=== PATIENT | female | born 1940 ===

== ENCOUNTER 2022-05-07 11:07 | Inpatient (IN) | payer MEDICARE, OTHER ==
[2022-05-07] VITALS (429 sets, daily range): BP systolic 126–156; BP diastolic 66–84; PULSE 44–65; TEMP 97.9–98; O2SAT 73–100
[~2022-05-07] VITALS: Ht 152.4 cm; Wt 73.3 kg
[2022-05-07 16:36] LABS: MEAN CELL VOLUME 95 fl (80.0-100.0); MEAN CORPUSCULAR HGB CONC 35 g/dl (33.0-37.0); MEAN PLATELET VOLUME 9.9 fl (7.4-10.4); PLATELET COUNT 159 K/mm3 (130-400); RED BLOOD COUNT 2.84 M/mm3 (4.10-5.30); REDCELL DISTRIBUTION WIDTH-CV 14.8 % (11.5-14.5)
[2022-05-07 16:37] LABS: HEMATOCRIT 26.9 % (37.0-47.0); HEMOGLOBIN 9.3 g/dl (12.5-16.0); MEAN CORPUSCULAR HEMOGLOBIN 33 pg (27-31)
[2022-05-07 16:56] LABS: ALBUMIN 2.8 gm/dL (3.4-4.8); BILIRUBIN,TOTAL 0.7 mg/dL (0.2-1.2); CREATININE, serum 1.72 mg/dL (0.57-1.11); POTASSIUM 3.3 mmol/L (3.5-4.5); TOTAL PROTEIN 11.6 gm/dL (6.2-8.1)
[2022-05-07 16:57] LABS: CALCIUM 13.5 mg/dL (8.4-10.2)
[2022-05-07 17:15] LABS: MAGNESIUM 1.7 mg/dL (1.6-2.6)
[2022-05-07 17:42] LABS: INR 1.2 (0.8-3.0); PROTHROMBIN TIME 13.3 SECONDS (9.7-12.8)
[2022-05-07 17:44] LABS: PARTIAL THROMBOPLASTIN TIME 28.4 SECONDS (26.0-37.0)
[2022-05-07 17:49] LABS: IRON,SERUM 109 ug/dL (50-175); LACTATE DEHYDROGENASE 205 U/L (125-220)
[2022-05-07] MEDS ORDERED: SYNTHROID0.05 MG/TA PO (19:47)
[2022-05-07] MEDS ORDERED: PLAQUENIL 200M200 MG PO (19:49)
[2022-05-07] MEDS ORDERED: HYDRODIURIL50 MG PO (19:49)
[2022-05-07] MEDS ORDERED: ZOVIRAX 200MG200 MG PO (19:52)
[2022-05-07] MEDS ORDERED: VITAMIN D31000 I1 PO (19:54)
[2022-05-07] MEDS ORDERED: CALCIUM 600 MG1 EAC2 PO (19:55)
[2022-05-07] MEDS ORDERED: OMEGA-31 SGL (19:56)
[2022-05-07] MEDS ORDERED: COMPLETE MULTI1 TAB (19:57)
[2022-05-07] MEDS ORDERED: VITAMIN C500 MG PO (19:58)
[2022-05-07] MEDS ORDERED: THIAMINE 1100 MG/TAB (19:58)
[2022-05-07] MEDS ORDERED: NATURAL IRON65 MG PO (20:01)
[2022-05-07] MEDS ORDERED: BETAPACE 120MG120 MG PO (20:02)
[2022-05-08] VITALS (574 sets, daily range): BP systolic 133–154; BP diastolic 52–75; PULSE 65–80; TEMP 97.7–98.4; O2SAT 90–100
[2022-05-08 05:56] LABS: ALBUMIN 2.4 gm/dL (3.4-4.8); BILIRUBIN,TOTAL 0.5 mg/dL (0.2-1.2); CREATININE, serum 1.24 mg/dL (0.57-1.11); POTASSIUM 3.1 mmol/L (3.5-4.5); TOTAL PROTEIN 10.3 gm/dL (6.2-8.1)
[2022-05-08 06:01] LABS: CALCIUM 13.3 mg/dL (8.4-10.2)
[2022-05-08 06:03] LABS: TROPONIN-I 0.031 ng/mL (0.00-0.033)
[2022-05-08 14:29] LABS: HEMATOCRIT 28.1 % (37.0-47.0); HEMOGLOBIN 9.1 g/dl (12.5-16.0)
[2022-05-08 17:56] LABS: HEPATITIS B SURFACE ANTIBODY <2.0 (()); HEPATITIS B SURFACE ANTIGEN Negative (Negative); HEPATITIS C VIRUS ANTIBODY Negative (Negative)
[2022-05-08 17:57] LABS: INR 1.2 (0.8-3.0); PROTHROMBIN TIME 14.1 SECONDS (9.7-12.8)
[2022-05-08 20:23] LABS: CLOSTRIDIUM DIFF A/B NEG; CLOSTRIDIUM DIFF A/B INTERP No C.diff present
[2022-05-09] VITALS (944 sets, daily range): BP systolic 123–160; BP diastolic 70–86; PULSE 75–96; TEMP 97.6–98.1; O2SAT 90–100
[2022-05-09 08:01] LABS: BASO % 0.2 % (0.0-2.0); GRAN # 5.5 K/mm3 (1.4-6.5); GRAN % 85.6 % (42.2-75.2); LYMPH # 0.5 K/mm3 (1.2-3.4); LYMPH % 7.8 % (20.0-51.0); MEAN CELL VOLUME 99 fl (80.0-100.0); MEAN CORPUSCULAR HGB CONC 34 g/dl (33.0-37.0); MEAN PLATELET VOLUME 10.1 fl (7.4-10.4); MONO # 0.4 K/mm3 (0.1-0.6); MONO % 5.8 % (1.7-9.3); PLATELET COUNT 136 K/mm3 (130-400); RED BLOOD COUNT 2.63 M/mm3 (4.10-5.30); REDCELL DISTRIBUTION WIDTH-CV 14.9 % (11.5-14.5)
[2022-05-09 08:03] LABS: HEMOGLOBIN 8.7 g/dl (12.5-16.0); MEAN CORPUSCULAR HEMOGLOBIN 33 pg (27-31)
[2022-05-09 08:17] LABS: ALBUMIN 2.1 gm/dL (3.4-4.8); CALCIUM 11.1 mg/dL (8.4-10.2); CREATININE, serum 1.16 mg/dL (0.57-1.11); MAGNESIUM 1.2 mg/dL (1.6-2.6); PHOSPHOROUS 1.3 mg/dL (2.3-4.7)
[2022-05-09 08:18] LABS: KAPPA FREE LIGHT CHAIN-SERUM 513.25 mg/L (()); KAPPA LAMBDA RATIO 86.26 ratio (()); LAMDA FREE LIGHT CHAIN SERUM 5.95 mg/L (())
[2022-05-10] VITALS (1107 sets, daily range): BP systolic 123–175; BP diastolic 61–98; PULSE 45–90; TEMP 97.9–98.8; O2SAT 86–100
[2022-05-10 05:17] LABS: BASO % 0.1 % (0.0-2.0); EOS % 0.1 % (0.0-4.0); GRAN # 6.6 K/mm3 (1.4-6.5); GRAN % 83.7 % (42.2-75.2); LYMPH # 0.7 K/mm3 (1.2-3.4); LYMPH % 8.8 % (20.0-51.0); MEAN CELL VOLUME 103 fl (80.0-100.0); MEAN CORPUSCULAR HGB CONC 32 g/dl (33.0-37.0); MEAN PLATELET VOLUME 9.9 fl (7.4-10.4); MONO # 0.5 K/mm3 (0.1-0.6); MONO % 6.7 % (1.7-9.3); PLATELET COUNT 143 K/mm3 (130-400); RED BLOOD COUNT 2.46 M/mm3 (4.10-5.30); REDCELL DISTRIBUTION WIDTH-CV 14.8 % (11.5-14.5)
[2022-05-10 05:19] LABS: HEMATOCRIT 25.4 % (37.0-47.0); MEAN CORPUSCULAR HEMOGLOBIN 33 pg (27-31)
[2022-05-10 05:35] LABS: ALBUMIN 1.9 gm/dL (3.4-4.8); CALCIUM 9.2 mg/dL (8.4-10.2); CREATININE, serum 0.85 mg/dL (0.57-1.11); MAGNESIUM 1.8 mg/dL (1.6-2.6); PHOSPHOROUS 1.7 mg/dL (2.3-4.7); POTASSIUM 3.7 mmol/L (3.5-4.5)
[2022-05-10 18:42] LABS: HEMATOCRIT 26.8 % (37.0-47.0); HEMOGLOBIN 8.8 g/dl (12.5-16.0)
[2022-05-11] VITALS (1318 sets, daily range): BP systolic 138–159; BP diastolic 57–73; PULSE 49–68; TEMP 97.9–98.8; O2SAT 89–100
[2022-05-11 05:30] LABS: BASO % 0.1 % (0.0-2.0); EOS % 0.1 % (0.0-4.0); GRAN # 6.5 K/mm3 (1.4-6.5); GRAN % 77.9 % (42.2-75.2); LYMPH % 11.7 % (20.0-51.0); MEAN CELL VOLUME 99 fl (80.0-100.0); MEAN CORPUSCULAR HGB CONC 33 g/dl (33.0-37.0); MEAN PLATELET VOLUME 9.7 fl (7.4-10.4); MONO # 0.8 K/mm3 (0.1-0.6); MONO % 9.1 % (1.7-9.3); PLATELET COUNT 152 K/mm3 (130-400); RED BLOOD COUNT 2.44 M/mm3 (4.10-5.30); REDCELL DISTRIBUTION WIDTH-CV 15.1 % (11.5-14.5)
[2022-05-11 05:35] LABS: HEMATOCRIT 24.1 % (37.0-47.0); MEAN CORPUSCULAR HEMOGLOBIN 33 pg (27-31)
[2022-05-11 05:45] LABS: CALCIUM 8.7 mg/dL (8.4-10.2); CREATININE, serum 0.84 mg/dL (0.57-1.11); MAGNESIUM 1.6 mg/dL (1.6-2.6); PHOSPHOROUS 1.5 mg/dL (2.3-4.7); POTASSIUM 4.2 mmol/L (3.5-4.5)
[2022-05-12] VITALS (584 sets, daily range): BP systolic 143–170; BP diastolic 55–74; PULSE 63–72; TEMP 96.6–98.5; O2SAT 90–100
[2022-05-12 05:39] LABS: BASO % 0.2 % (0.0-2.0); EOS # 0.1 K/mm3 (0.0-0.7); EOS % 0.6 % (0.0-4.0); GRAN # 7.4 K/mm3 (1.4-6.5); GRAN % 74.1 % (42.2-75.2); LYMPH # 1.4 K/mm3 (1.2-3.4); LYMPH % 13.9 % (20.0-51.0); MEAN CELL VOLUME 103 fl (80.0-100.0); MEAN CORPUSCULAR HGB CONC 32 g/dl (33.0-37.0); MEAN PLATELET VOLUME 9.8 fl (7.4-10.4); MONO % 9.8 % (1.7-9.3); PLATELET COUNT 192 K/mm3 (130-400); RED BLOOD COUNT 2.67 M/mm3 (4.10-5.30); REDCELL DISTRIBUTION WIDTH-CV 15.5 % (11.5-14.5)
[2022-05-12 05:44] LABS: HEMATOCRIT 27.6 % (37.0-47.0); HEMOGLOBIN 8.8 g/dl (12.5-16.0); MEAN CORPUSCULAR HEMOGLOBIN 33 pg (27-31)
[2022-05-12 05:57] LABS: ALBUMIN 2.2 gm/dL (3.4-4.8); CALCIUM 8.3 mg/dL (8.4-10.2); CREATININE, serum 0.81 mg/dL (0.57-1.11); MAGNESIUM 2.1 mg/dL (1.6-2.6); PHOSPHOROUS 1.7 mg/dL (2.3-4.7); POTASSIUM 3.6 mmol/L (3.5-4.5)
[2022-05-12 13:27] LABS: A/G RATIO (PEP) 0.49 (()); BETA GLOBULINS (PEP) 1.2 g/dL (0.7-1.2)
[2022-05-13] VITALS: BP 152/67; PULSE 72; TEMP 98.1
[2022-05-13 04:37] VITALS: BP 160/72; PULSE 80; TEMP 98
[2022-05-13 05:45] LABS: ALBUMIN 2.1 gm/dL (3.4-4.8); CALCIUM 7.8 mg/dL (8.4-10.2); CREATININE, serum 0.79 mg/dL (0.57-1.11); MAGNESIUM 1.8 mg/dL (1.6-2.6); PHOSPHOROUS 1.8 mg/dL (2.3-4.7); POTASSIUM 4.5 mmol/L (3.5-4.5)
[2022-05-13 06:15] LABS: BASO % 0.1 % (0.0-2.0); GRAN # 8.6 K/mm3 (1.4-6.5); GRAN % 84.5 % (42.2-75.2); LYMPH # 0.7 K/mm3 (1.2-3.4); LYMPH % 6.7 % (20.0-51.0); MEAN CELL VOLUME 104 fl (80.0-100.0); MEAN CORPUSCULAR HGB CONC 31 g/dl (33.0-37.0); MEAN PLATELET VOLUME 9.8 fl (7.4-10.4); MONO # 0.8 K/mm3 (0.1-0.6); MONO % 7.4 % (1.7-9.3); PLATELET COUNT 172 K/mm3 (130-400); RED BLOOD COUNT 2.43 M/mm3 (4.10-5.30); REDCELL DISTRIBUTION WIDTH-CV 15.5 % (11.5-14.5)
[2022-05-13 06:26] LABS: HEMOGLOBIN 7.9 g/dl (12.5-16.0); MEAN CORPUSCULAR HEMOGLOBIN 33 pg (27-31)
[2022-05-13 06:27] LABS: HEMATOCRIT 25.3 % (37.0-47.0)
[2022-05-13 08:00] VITALS: BP 152/67; PULSE 80; TEMP 98.4
[2022-05-13] MEDS ORDERED: ELIQUIS 5MG PO (11:28)
[2022-05-13] MEDS ORDERED: NORVASC 5MG5 MG/TAB PO (11:28)
[2022-05-13] MEDS ORDERED: CORDARONE200 MG/TAB PO (11:31)
[2022-05-13] MEDS ORDERED: DECADRON 4MG TAB4 MG PO (11:32)
== END 2022-05-13 14:23 | disposition swing bed (61) | DRG 260 ==
LOC: IMCU 11:07 → EDSTATUS 11:10 → ICU 13:13 → IMCU 13:13 → ICU 05-08 10:39
PROVIDERS: Internal Medicine Nephrology; Student in an Organized Health Care Education/Training Program; ADMIT Internal Medicine
PROC: 0JH602Z Insertion of Monitoring Device into Chest Subcutaneous Tissue and Fascia, Open Approach (ICD-10-PCS; principal; 2022-05-12)
DX: I48.0 Paroxysmal atrial fibrillation (principal); G93.41 Metabolic encephalopathy; J96.01 Acute respiratory failure with hypoxia; C90.00 Multiple myeloma not having achieved remission; E87.1 Hypo-osmolality and hyponatremia; N17.9 Acute kidney failure, unspecified; E88.09 Other disorders of plasma-protein metabolism, not elsewhere classified; D63.0 Anemia in neoplastic disease; E83.52 Hypercalcemia; K21.9 Gastro-esophageal reflux disease without esophagitis; T44.7X5A Adverse effect of beta-adrenoreceptor antagonists, initial encounter; E86.9 Volume depletion, unspecified; I95.9 Hypotension, unspecified; I08.1 Rheumatic disorders of both mitral and tricuspid valves; I49.1 Atrial premature depolarization; I12.9 Hypertensive chronic kidney disease with stage 1 through stage 4 chronic kidney disease, or unspecified chronic kidney disease; N18.9 Chronic kidney disease, unspecified; M79.651 Pain in right thigh; I27.20 Pulmonary hypertension, unspecified; Z88.5 Allergy status to narcotic agent; Z79.01 Long term (current) use of anticoagulants; Z88.8 Allergy status to other drugs, medicaments and biological substances; Z88.6 Allergy status to analgesic agent; Z88.1 Allergy status to other antibiotic agents; Z91.040 Latex allergy status; Z79.890 Hormone replacement therapy
CPT/HCPCS: OP; A9575; C1764; C9113; J0282; J0696; J1644; J3475; J3489; J7030; J7050; J7060; J8540